=== PATIENT | female | born 1980 | race Caucasian/White ===

== ENCOUNTER 2017-12-16 13:01 | Emergency (ER) | payer OTHER ==
[~2017-12-16] VITALS: Ht 152.4 cm; Wt 65.8 kg
[~2017-12-16 13:01] MED LIST: LEVSIN/SL0.125 MG SL; PEPCID40 MG PO; PHENERGAN25 MG PO; TESSALON PERLE100 MG PO; TUSSI PRES-B L120 M1 PO
== END 2017-12-16 17:40 | disposition home or self-care (01) ==
LOC: ER 13:01
DX: G56.03 Carpal tunnel syndrome, bilateral upper limbs (principal); R20.0 Anesthesia of skin

== ENCOUNTER → 2017-12-29 | Emergency (ER) | payer OTHER ==
[~2017-12-29] VITALS: Ht 152.4 cm; Wt 64.4 kg
== END | disposition left against medical advice (07) ==
LOC: ER 09:49
DX: Z53.20 Procedure and treatment not carried out because of patient's decision for unspecified reasons (principal)

== ENCOUNTER 2020-04-22 09:09 | Outpatient (CLI) | payer OTHER | END 2020-04-22 09:28 | disposition home or self-care (01) | LOC: RAD 09:09 | PROVIDERS: ATTEND Orthopaedic Surgery | DX: S93.491D Sprain of other ligament of right ankle, subsequent encounter (principal) ==

== ENCOUNTER 2021-05-28 14:20 | Emergency (ER) | payer OTHER ==
[~2021-05-28] VITALS: Ht 152.4 cm; Wt 65.8 kg
[2021-05-28] MEDS ORDERED: CARAFATE1 GM (14:26)
[2021-05-28] MEDS ORDERED: PROTONIX40 MG (14:27)
== END 2021-05-28 18:20 | disposition home or self-care (01) ==
LOC: ER 14:20
DX: R10.13 Epigastric pain (principal)

== ENCOUNTER 2021-05-31 11:37 | Emergency (ER) | payer OTHER ==
[~2021-05-31] VITALS: Ht 167.6 cm; Wt 65.8 kg
[~2021-05-31 11:37] MED LIST changes: +CARAFATE1 GM; +PROTONIX40 MG
[2021-05-31] MEDS ORDERED: PEPCID AC20 MG PO (12:13)
[2021-05-31] MEDS ORDERED: LEVSIN0.125 MG PO (12:14)
== END 2021-05-31 18:22 | disposition home or self-care (01) ==
LOC: ER 11:37
DX: R10.13 Epigastric pain (principal); D64.9 Anemia, unspecified

== ENCOUNTER 2021-06-20 06:08 | Day surgery (SDC) | payer OTHER ==
[~2021-06-20 06:08] MED LIST changes: +LEVSIN0.125 MG PO; +PEPCID AC20 MG PO
== END 2021-06-20 12:00 | disposition home or self-care (01) ==
LOC: AMB-ENDOS 06:08
PROVIDERS: ATTEND Internal Medicine Gastroenterology
DX: D50.9 Iron deficiency anemia, unspecified (principal); Z20.822 Contact with and (suspected) exposure to COVID-19

== ENCOUNTER → 2021-06-21 | Day surgery (SDC) | payer OTHER | END | disposition home or self-care (01) | LOC: ADM 06-17 15:15 → AMB-ENDOS 06:14 | PROVIDERS: ATTEND Internal Medicine Gastroenterology | DX: K31.89 Other diseases of stomach and duodenum (principal); K44.9 Diaphragmatic hernia without obstruction or gangrene ==

== ENCOUNTER 2021-10-19 19:05 | Emergency (ER) | payer OTHER ==
[~2021-10-19] VITALS: Ht 152.4 cm; Wt 65.8 kg
[2021-10-19] MEDS ORDERED: FUSION PLUS CA1 EACH (19:46)
[2021-10-19] MEDS ORDERED: OSTERA TABLET1 EACH (19:46)
[2021-10-19] MEDS ORDERED: NEURIN (19:46)
[2021-10-19] MEDS ORDERED: PEPCID AC20 MG PO (22:15)
[2021-10-19] MEDS ORDERED: METRONIDAZOLE500 MG PO (22:15)
== END 2021-10-19 22:25 | disposition home or self-care (01) ==
LOC: ER 19:05
DX: R10.32 Left lower quadrant pain (principal); D64.9 Anemia, unspecified; R19.7 Diarrhea, unspecified; Z91.013 Allergy to seafood; N20.0 Calculus of kidney

== ENCOUNTER 2021-11-02 07:10 | Outpatient (CLI) | payer OTHER ==
[~2021-11-02 07:10] MED LIST changes: +FUSION PLUS CA1 EACH; +METRONIDAZOLE500 MG PO; +NEURIN; +OSTERA TABLET1 EACH
== END 2021-11-02 07:16 | disposition home or self-care (01) ==
LOC: NUCLEAR 07:10
PROVIDERS: ATTEND Internal Medicine Hematology & Oncology
DX: K82.9 Disease of gallbladder, unspecified (principal)
CPT/HCPCS: 78227; A9510

== ENCOUNTER 2022-01-15 07:03 | Emergency (ER) | payer OTHER ==
[~2022-01-15] VITALS: Ht 152.4 cm; Wt 63.5 kg
[2022-01-15] MEDS ORDERED: KETO10TA2 PO (10:55)
== END 2022-01-15 10:58 | disposition home or self-care (01) ==
LOC: ER 07:03
DX: R10.9 Unspecified abdominal pain (principal); Z91.013 Allergy to seafood

== ENCOUNTER → 2022-02-13 | Emergency (ER) | payer OTHER ==
[~2022-02-13] VITALS: Ht 152.4 cm; Wt 63.5 kg
[~2022-02-13] MED LIST changes: +KETO10TA2 PO
== END | disposition left against medical advice (07) ==
LOC: ER 13:06
DX: R52 Pain, unspecified (principal); Z91.013 Allergy to seafood